=== PATIENT | male | born 1940 | race Caucasian/White ===

== ENCOUNTER → 2017-10-18 | Outpatient (CLI) | payer MEDICARE ==
[~2017-10-18] MED LIST: OMEP20CA5 PO; TAMS0.4C67 PO; ZITH250T PO
--- NOTE | 2017-10-19 23:22 | EKG ---
Date Performed: 10/18/2017 Time Performed: 08:36:52 PTAGE: 77 years EKG: Sinus rhythm . Poor R wave progression - probable normal variant Borderline ECG PREVIOUS TRACING : 04/14/2002 07.27 Compared to previous tracing, rate faster DOCTOR: Claudia Robledo Interpretating Date/Time 10/19/2017 23:22:00
== END ==
LOC: HCAV 08:24
PROVIDERS: ATTEND Urology
DX: Z01.810 Encounter for preprocedural cardiovascular examination (principal)
CPT/HCPCS: 93005